=== PATIENT | female | born 1950 | race Hispanic/Latino ===

== ENCOUNTER → 2017-09-10 | Outpatient (CLI) | payer MEDICARE ==
[~2017-09-10] MED LIST: ACET1TAB25 PO; AEC81 PO; CHOL400C9 PO; FURO20TA4 PO; GABA-531 PO; HUM10VIA6 SQ; ISOS30TA11 PO; LOSA25TA21 PO; METO-408 PO; METO2.5T2 PO; MULT-1203 PO; NITR0.4T50 SL; OMEG1CAP99 PO; RANI300T4 PO; RANO10003 PO; REGADENOSON 0.4 MG/5 ML PF SYG IVP SCH; ROSU20TA PO; URSO300C4 PO; VIT B12 PO
== END | disposition home or self-care (01) ==
LOC: SHCH 15:08
PROVIDERS: ATTEND Internal Medicine Cardiovascular Disease
DX: I20.9 Angina pectoris, unspecified (principal)
CPT/HCPCS: 78452; 93017; 93306; 96374; A9500 ×2; J2785

== ENCOUNTER → 2019-11-28 | Outpatient (CLI) | payer MEDICARE ==
[~2019-11-28] MED LIST changes: -LOSA25TA21 PO; +LOSA25TA41 PO; -ROSU20TA PO; +ROSU20TA23 PO
== END | disposition home or self-care (01) ==
LOC: SHCH 07:54
PROVIDERS: ATTEND Internal Medicine Cardiovascular Disease
DX: R07.9 Chest pain, unspecified (principal)
CPT/HCPCS: 78452; 93017; 96374; A9500 ×2; J2785

== ENCOUNTER 2019-12-21 05:51 | Day surgery (SDC) | payer MEDICARE ==
[~2019-12-21] VITALS: Ht 165.1 cm; Wt 99.9 kg
[2019-12-21] VITALS (12 sets, daily range): BP systolic 113–154; BP diastolic 43–84
[~2019-12-21 05:51] MED LIST changes: -REGADENOSON 0.4 MG/5 ML PF SYG IVP SCH
[2019-12-21 07:01] LABS: APPEARANCE,URINE CLEAR (CLEAR); BILIRUBIN,URINE NEGATIVE (NEGATIVE); COLOR,URINE YELLOW (YELLOW); GLUCOSE, URINE (UA) NEGATIVE (NEGATIVE); KETONES,URINE NEGATIVE (NEGATIVE); LEUKOCYTE ESTERASE ,URINE NEGATIVE (NEGATIVE); NITRATE,URINE NEGATIVE (NEGATIVE); OCCULT BLOOD,URINE NEGATIVE (NEGATIVE); PROTEIN,URINE NEGATIVE (NEGATIVE); UROBILINOGEN,URINE 0.2 mg/dL (0.2-1.0)
[2019-12-21 07:07] LABS: BASOPHILS % (AUTO) 0.4 % (0.0-5.0); EOSINOPHILS % (AUTO) 0.4 % (0.0-8.0); LYMPHOCYTES % (AUTO) 38.6 % (21.0-51.0); MEAN CORPUSCULAR HEMOGLOBIN 32.9 pg (27.0-33.0); MEAN CORPUSCULAR HGB CONC 33.4 g/dL (32.0-36.0); MEAN CORPUSCULAR VOLUME 98.5 fL (79-99); MONOCYTES % (AUTO) 7.8 % (3.0-13.0); NEUTROPHILS % (AUTO) 52.5 % (40.0-77.0); PLATELET COUNT (AUTO) 126 K/uL (130-400); RED BLOOD CELL COUNT(AUTO) 3.25 MIL/uL (4.00-5.50); RED CELL DISTRIBUTION WIDTH 12.4 % (11.0-15.5); WHITE BLOOD COUNT (AUTO) 7.5 K/uL (4.8-10.8)
[2019-12-21 07:18] LABS: CREATININE 0.7 mg/dL (0.5-1.5)
[2019-12-21 07:27] LABS: INR 1.15 (0.85-1.15); PARTIAL THROMBOPLASTIN TIME 24.4 SEC (26.3-35.5); PROTHROMBIN TIME 12.4 SEC (9.6-11.6)
[2019-12-21] MEDS ORDERED: IOHEXOL 350 MG/ML 100ML INFUS..BTL IV ONE (07:30)
[2019-12-21] MEDS ORDERED: IOHEXOL-350 50ML VIAL IV ONE (07:30)
[2019-12-21] MEDS ORDERED: NITROGLYCERIN 2 MG/VIAL VIAL IV ONE (07:30)
[2019-12-21] MEDS ORDERED: LIDOCAINE HCL 2% 20ML ONE (07:30)
[2019-12-21] MEDS ORDERED: HEPARIN SODIUM 1000UNIT/ML 10ML VIAL ONE (07:30)
[2019-12-21] MEDS ORDERED: TAMO20TA4 PO (07:50)
[2019-12-21] MEDS ORDERED: METO50TA18 PO (07:50)
[2019-12-21] MEDS ORDERED: EZET10TA48 PO (07:50)
[2019-12-21] MEDS ORDERED: ISOS30TA6 PO (07:50)
[2019-12-21] MEDS ORDERED: ACET-2743 PO (07:50)
[2019-12-21] MEDS ORDERED: ICOS1CAP PO (07:50)
[2019-12-21] MEDS ORDERED: BACL10TA PO (07:50)
[2019-12-21] MEDS ORDERED: TRAM50TA4 PO (07:50)
[2019-12-21] MEDS ORDERED: GABA300C PO (07:50)
[2019-12-21] MEDS ORDERED: URSO500T10 PO (07:50)
[2019-12-21] MEDS ORDERED: PRAV40TA3 PO (07:50)
[2019-12-21] MEDS ORDERED: DULA1.5P SQ (07:50)
[2019-12-21] MEDS ORDERED: LOSA100T58 PO (07:50)
[2019-12-21] MEDS ORDERED: SODIUM CHLORIDE 0.9% 1000ML 1,000 ML IV ONE (08:17)
[2019-12-21] MEDS ORDERED: DEXTROSE 50%-WATER 50 ML DISP.SYRIN IV PRN (08:45)
[2019-12-21] MEDS ORDERED: SODIUM CHLORIDE 0.9% 10 ML VIAL IVP SCH (08:45)
[2019-12-21] MEDS ORDERED: GLUCAGON 1MG KIT 1 MG ML IM PRN (08:45)
[2019-12-21] MEDS ORDERED: INSULIN HUMULIN R 100 UNIT/ML 3ML SQ SCH (11:30)
== END 2019-12-21 16:15 | disposition home or self-care (01) ==
LOC: DAH 05:51
PROVIDERS: ATTEND Internal Medicine Cardiovascular Disease
DX: I25.119 Atherosclerotic heart disease of native coronary artery with unspecified angina pectoris (principal); E66.01 Morbid (severe) obesity due to excess calories; E11.9 Type 2 diabetes mellitus without complications; G47.30 Sleep apnea, unspecified; I25.2 Old myocardial infarction; Z85.3 Personal history of malignant neoplasm of breast; Z90.11 Acquired absence of right breast and nipple; Z92.3 Personal history of irradiation; Z92.21 Personal history of antineoplastic chemotherapy; Z90.49 Acquired absence of other specified parts of digestive tract; Z82.49 Family history of ischemic heart disease and other diseases of the circulatory system; Z79.899 Other long term (current) drug therapy; Z79.82 Long term (current) use of aspirin; Z95.0 Presence of cardiac pacemaker; Z79.01 Long term (current) use of anticoagulants
CPT/HCPCS: 36415; 71045; 80048; 81003; 82948 ×2; 85025; 85610; 85730; 93005; 93459; A4215; A4216; A4221; A4222; A4223 ×3; A4606; A4663; C1769 ×2; C1894; J1644 ×2; J3490 ×2; J7030; Q9965; Q9967 ×2

== ENCOUNTER → 2023-06-30 | Outpatient (CLI) | payer OTHER ==
[~2023-06-30] MED LIST changes: +ACET-2743 PO; -ACET1TAB25 PO; +BACL10TA PO; -CHOL400C9 PO; +DULA1.5P SQ; +EZET10TA48 PO; -GABA-531 PO; +GABA300C PO; -HUM10VIA6 SQ; +ICOS1CAP PO; -ISOS30TA11 PO; +ISOS30TA92 PO; +LOSA100T59 PO; -LOSA25TA41 PO; -METO-408 PO; -METO2.5T2 PO; +METO50TA18 PO; +PRAV40TA3 PO; -RANI300T4 PO; -ROSU20TA23 PO; +TAMO20TA4 PO; +TRAM50TA4 PO; -URSO300C4 PO; +URSO500T10 PO; -VIT B12 PO
== END | disposition home or self-care (01) ==
LOC: LAB 09:09
PROVIDERS: ATTEND Internal Medicine
DX: R10.11 Right upper quadrant pain (principal)
CPT/HCPCS: 36415; 82565; 84520

== ENCOUNTER → 2023-07-01 | Outpatient (CLI) | payer OTHER ==
[~2023-07-01] MED LIST changes: +GADOTERATE MEGLUMINE 10 MMOL/20 ML VIAL IV ONE
== END | disposition home or self-care (01) ==
LOC: RAH 08:33
PROVIDERS: ATTEND Internal Medicine
DX: R10.11 Right upper quadrant pain (principal); Z90.49 Acquired absence of other specified parts of digestive tract
CPT/HCPCS: 74183; A9575; S8037

== ENCOUNTER → 2024-03-23 | Outpatient (CLI) | payer OTHER ==
[~2024-03-23] MED LIST changes: -GADOTERATE MEGLUMINE 10 MMOL/20 ML VIAL IV ONE
== END | disposition home or self-care (01) ==
LOC: LAB 14:25
PROVIDERS: ATTEND Internal Medicine
DX: K74.3 Primary biliary cirrhosis (principal); R93.2 Abnormal findings on diagnostic imaging of liver and biliary tract
CPT/HCPCS: 36415; 82565; 84520

== ENCOUNTER → 2024-03-25 | Outpatient (CLI) | payer OTHER ==
[~2024-03-25] MED LIST changes: +IOHEXOL-350 75 ML VIAL IV ONE
== END | disposition home or self-care (01) ==
LOC: RAH 07:53
PROVIDERS: ATTEND Internal Medicine
DX: K57.30 Diverticulosis of large intestine without perforation or abscess without bleeding (principal); M47.815 Spondylosis without myelopathy or radiculopathy, thoracolumbar region; I70.90 Unspecified atherosclerosis; K74.3 Primary biliary cirrhosis; R93.2 Abnormal findings on diagnostic imaging of liver and biliary tract; Z90.49 Acquired absence of other specified parts of digestive tract
CPT/HCPCS: 74170; Q9967

== ENCOUNTER → 2024-11-08 | Outpatient (CLI) | payer OTHER ==
[~2024-11-08] MED LIST changes: +GADOTERATE MEGLUMINE 10 MMOL/20 ML VIAL IV ONE; -IOHEXOL-350 75 ML VIAL IV ONE
--- NOTE | 2024-11-08 16:52 | HMCIMG ---
MRI ABDOMEN WITH AND WITHOUT CONTRAST INDICATION: Primary biliary cirrhosis, right upper abdominal pain. COMPARISON: 07/01/2023 MRI and 03/25/2024 CT abdomen and pelvis. TECHNIQUE: Multisequence multiplanar imaging of the abdomen was obtained with and without IV contrast. Approximately 20 mL of IV Clariscan was administered for the postcontrast portion of the study. FINDINGS: Visible lungs are clear and heart size is normal. 2.1 cm early-arterial enhancing lesion within the lateral right hepatic lobe on image 62 of series 901 and 1.3 cm lesion just inferior to this level on image 45 of series 901 without any enhancement noted on the subsequent phases. Minimal associated DWI signal. Diffuse signal loss throughout the liver parenchyma suggests fatty change. No evidence for biliary duct dilation. Pancreas, pancreatic duct, kidneys, spleen, adrenal glands, and stomach appear normal. Gallbladder is surgically absent. No evidence for intra-abdominal free fluid or lymphadenopathy. Visible small and large bowel loops appear normal. IMPRESSION: 1. 2.1 cm and 1.3 cm early-arterial enhancing lateral right hepatic lobe lesionsconcerning for primary and/or secondary neoplasm. Enhancement characteristics are not typical for hemangioma, adenoma, or focal nodular hyperplasia. 2. Hepatic steatosis without evidence for biliary duct dilation.
== END | disposition home or self-care (01) ==
LOC: RAH 14:46
PROVIDERS: ATTEND Internal Medicine Gastroenterology
DX: K76.0 Fatty (change of) liver, not elsewhere classified (principal); K76.9 Liver disease, unspecified; K74.3 Primary biliary cirrhosis; R93.2 Abnormal findings on diagnostic imaging of liver and biliary tract; R10.11 Right upper quadrant pain; Z90.49 Acquired absence of other specified parts of digestive tract
CPT/HCPCS: 74183; A9575

== ENCOUNTER → 2025-03-08 | Outpatient (CLI) | payer OTHER ==
[~2025-03-08] MED LIST changes: -GADOTERATE MEGLUMINE 10 MMOL/20 ML VIAL IV ONE; -PRAV40TA3 PO; +PRAV40TA62 PO; -URSO500T10 PO; +URSO500T7 PO
[2025-03-08 14:16] LABS: IMMATURE GRANULOCYTE ABSOLUTE 0.01 K/uL (0-1); NUCLEATED RED BLOOD CELLS 0.0 % (0.0-0.19); PLATELET COUNT (AUTO) 176 K/uL (130-400); RED BLOOD CELL COUNT(AUTO) 3.71 MIL/uL (4.00-5.50); RED CELL DISTRIBUTION WIDTH 13.3 % (11.0-15.5); WHITE BLOOD COUNT (AUTO) 6.2 K/uL (4.8-10.8)
[2025-03-08 14:27] LABS: INR 1.25 (0.85-1.15)
[2025-03-08 14:30] LABS: ASPARTATE AMINOTRANSFERASE 33.0 U/L (10-37); CREATININE 1.2 mg/dL (0.5-1.0); GLOMERULAR FILTR. RATE CALC 48.0 mL/min (>90); GLUCOSE,RANDOM 102.0 mg/dL (70-105); SODIUM SERUM 135.0 mmol/L (136-145); TOTAL PROTEIN, SERUM 7.7 g/dL (6.0-8.3); UREA NITROGEN, BLOOD 26.0 mg/dL (7-18)
== END | disposition home or self-care (01) ==
LOC: LAB 13:40
PROVIDERS: ATTEND Internal Medicine Gastroenterology
DX: R93.2 Abnormal findings on diagnostic imaging of liver and biliary tract (principal); K74.3 Primary biliary cirrhosis
CPT/HCPCS: 36415; 80053; 82105; 85025; 85610

== ENCOUNTER → 2025-03-10 | Outpatient (CLI) | payer OTHER ==
[~2025-03-10] MED LIST changes: +GADOTERATE MEGLUMINE 5 MMOL/10 ML VIAL IV ONE
--- NOTE | 2025-03-11 15:35 | HMCIMG ---
EXAM: MR Abdomen with and without Intravenous Contrast. CLINICAL HISTORY: Patient presents with primary biliary cirrhosis. TECHNIQUE: Multisequence, multiplanar magnetic resonance images of the abdomen were obtained before and after intravenous contrast administration. CONTRAST: Administered intravenously. COMPARISON: 11/08/2014 FINDINGS: LOWER THORAX: No pleural effusion. LIVER: The liver demonstrates nodular contour consistent with cirrhosis. GALLBLADDER AND BILE DUCTS: The gallbladder is surgically absent. Central intrahepatic biliary radical dilatation is present. The common hepatic duct measures approximately 2.0 cm and the common bile duct measures approximately 1.2 cm with tapering at the terminal CBD, concerning for a distal common bile duct stricture. The cystic duct stump is dilated, measuring approximately 0.9 cm. PANCREAS: Unremarkable. No ductal dilation. SPLEEN: Unremarkable. ADRENALS: Unremarkable. KIDNEYS: The kidneys are within normal limits. No hydronephrosis or mass. STOMACH AND BOWEL: Limited evaluation of the stomach and bowel demonstrates no acute process. LYMPH NODES: No lymphadenopathy. VASCULATURE: No abdominal aortic aneurysm. IMPRESSION: Nodular liver contour consistent with cirrhosis. No focal hepatic lesions. Central intrahepatic biliary and extrahepatic biliary ductal dilatation with terminal CBD tapering, concerning for distal CBD stricture. When compared with 11/08/2024, ductal dilatation is increased. Surgically absent gallbladder. Dilated cystic duct stump measuring 0.9 cm. /Clifford
== END | disposition home or self-care (01) ==
LOC: RAH 08:29
PROVIDERS: ATTEND Internal Medicine Gastroenterology
DX: K74.3 Primary biliary cirrhosis (principal); R93.2 Abnormal findings on diagnostic imaging of liver and biliary tract; Z90.49 Acquired absence of other specified parts of digestive tract
CPT/HCPCS: 74183; A9575

== ENCOUNTER → 2025-06-13 | Outpatient (CLI) | payer OTHER ==
[~2025-06-13] MED LIST changes: -EZET10TA48 PO; +EZET10TA80 PO; -GADOTERATE MEGLUMINE 5 MMOL/10 ML VIAL IV ONE; +IOHEXOL 350 MG/ML 100ML INFUS..BTL IV ONE
--- NOTE | 2025-06-15 17:42 | CARDIOLOGY ---
RAD REPORT: [facility] CT ANGIO RADIOLOGY REPORT: CORONARY CT ANGIOGRAPHY DATE: Jun 15, 2025 QUALITY: Excellent CLINICAL HISTORY AND INDICATION: [ CABG] TECHNIQUE: After obtaining a preliminary candle molder hand image, contrast imaging performed on an [employer] [id number] scanner. A dedicated, limited window, coronary imaging protocol was used, with single breath-hold, retrospective ECG gating, and automated arrhythmia rejection. 100 cc of low osmolar contrast agent: Omnipaque 350 was delivered via a 18-gauge IV catheter in the right antecubital fossa, using a power injector and followed by 60 cc of normal saline bolus as a chaser. Collimated images were reformatted at 0.5 mm intervals, and sent to an offline independent workstation for interpretation, using 3D anatomic reconstructions: Curved multiplanar reconstructions, maximum intensity projections, and multiplanar imaging. 10 mg IV metoprolol was administered prior to scanning. 0.8 mg SL nitroglycerin was given. CORONARY ARTERY DESCRIPTIONS: The coronary arteries arise in normal position. Left main coronary artery: Normal caliber vessel that bifurcates into the LAD and LCx. Calcified and short left main. Severe diffuse left main stenosis. Left anterior descending coronary artery: Normal caliber vessel and gives rise to diagonal and septal branches. The LAD is heavily calcified with severe stenosis proximal to mid LAD. Patent HENDERSON to LAD, however, distal to anastomosis site the LAD is calcified diffusely with severe stenosis. The D1 artery is ab cified beyond SVG to D1 anastomosis site with 50-60% stenosis. Left circumflex coronary artery: Normal caliber, nondominant and gives rise to two OM branches. OM1 is calcified making luminal stenosis quantification difficult to assess, however, appears severe stenosis 80-90%. The mid LCx is calcified with 50-60% stenosis. Right coronary artery: Large, dominant vessel giving rise to the PL and PDA branches. Severe ISR of proximal MURRAY. Severe stenosis of the proximal to distal RCA. Patent HENDERSON to LAD. Patent SVG to D1. Patent SVG to R PDA. Thoracic Aorta: Normal diameter. Sydney Oswald MD Cardiovascular Disease [facility] SYDNEY OSWALD MD Jun 15, 2025 17:42
== END | disposition home or self-care (01) ==
LOC: RAH 07:56
PROVIDERS: ATTEND Internal Medicine Cardiovascular Disease
DX: I25.810 Atherosclerosis of coronary artery bypass graft(s) without angina pectoris (principal)
CPT/HCPCS: 75574; J3490 ×2; Q9967